=== PATIENT | female | born 1965 | race Caucasian/White ===

== ENCOUNTER 2020-05-31 09:34 | Outpatient (CLI) | payer OTHER, SELFPAY ==
--- NOTE | ~2020-05-31 | US_ITS ---
EXAMINATION: US abdomen limited DATE: 05/31/2020 10:14 INDICATION: Abnormal levels of other serum enzymes. TECHNIQUE: Multiple grayscale and Doppler ultrasound images of the abdomen were obtained. COMPARISON: CT abdomen and pelvis 09/24/2006 FINDINGS: The visualized portions of the head and body of the pancreas are normal. The liver is dean l without focal lesion. No liver surface nodularity. There is normal flow in main portal vein. The ga llbladder is absent. The common duct is normal and measures 4 mm. IMPRESSION: 1. Normal right upper quadrant ultrasound status post cholecystectomy. Reviewed, dictated and finalized at location A.
== END 2020-05-31 09:35 | disposition home or self-care (01) ==
LOC: ANHIMG 09:36
PROVIDERS: PCP Family Medicine; Visit Provider Family Medicine
DX: R74.8 Abnormal levels of other serum enzymes (principal); Z90.49 Acquired absence of other specified parts of digestive tract
CPT/HCPCS: 76705

== ENCOUNTER 2021-01-10 11:38 | Outpatient (CLI) | payer OTHER, SELFPAY | END 2021-01-10 11:39 | disposition home or self-care (01) | LOC: ANHCOVIDVC 11:39 | PROVIDERS: PCP Family Medicine | DX: Z23 Encounter for immunization (principal) | CPT/HCPCS: 0001A; 91300 ==

== ENCOUNTER 2021-01-31 11:48 | Outpatient (CLI) | payer OTHER, SELFPAY | END 2021-01-31 11:49 | disposition home or self-care (01) | LOC: ANHCOVIDVC 11:48 | PROVIDERS: PCP Family Medicine | DX: Z23 Encounter for immunization (principal) | CPT/HCPCS: 0002A; 91300 ==

== ENCOUNTER → 2021-02-06 14:54 | Outpatient (CLI) | payer OTHER, SELFPAY ==
--- NOTE | ~2021-02-06 | XR_ITS ---
EXAMINATION: XR cervical spine 4-5V DATE: 02/06/2021 15:58 INDICATION: Cervical radiculopathy. TECHNIQUE: 5 views of cervical spine were obtained. COMPARISON: Cervical spine MRI 03/09/2017 FINDINGS: Bone alignment is normal. Vertebral body heights and intervertebral disc heights are normal . There are changes of anterior fusion procedure from C5 to C7 with healed interbody bone graft. Ther e is an anterior plate and screws at C5-C6. There is multilevel mild facet joint osteoarthritis. No c entral canal stenosis or prevertebral soft tissue swelling. IMPRESSION: 1. Anterior fusion procedure from C5 to C7. Reviewed, dictated and finalized at location A.
== END ==
PROVIDERS: PCP Family Medicine; Visit Provider Family Medicine
DX: M54.12 Radiculopathy, cervical region (principal); Z98.1 Arthrodesis status
CPT/HCPCS: 72050

== ENCOUNTER → 2021-03-10 15:35 | Outpatient (CLI) | payer OTHER, SELFPAY ==
--- NOTE | ~2021-03-10 | MR_ITS ---
EXAMINATION: MR cervical spine wo con DATE: 03/10/2021 16:24 INDICATION: Neck pain. Cervical disc disorder with radiculopathy. TECHNIQUE: Magnetic resonance imaging (MRI) of the cervical spine was performed without intravenous c ontrast. Sequences included sagittal T2-weighted FSE, sagittal STIR FSE, sagittal T1-weighted FSE, ax ial MERGE, and axial T2-weighted FSE. COMPARISON: Cervical spine MRI 03/09/2017 FINDINGS: Bone alignment is normal. There are changes of anterior fusion procedure from C5 to C7 with healed interbody bone graft. There is an anterior plate and screws at C5-C6. Vertebral body heights are normal. Intervertebral disc heights are normal. The spinal cord signal intensity is normal. The f ollowing disc levels are specifically discussed: C2-C3: The disc does not extend beyond the endplate margin. There is no uncovertebral joint osteoarth ritis. There is moderate bilateral facet joint osteoarthritis. There is mild left neural foraminal st enosis. There is no central canal stenosis. C3-C4: The disc is bulging. There is moderate right and mild left uncovertebral joint osteoarthritis. There is severe bilateral facet joint osteoarthritis. There is mild bilateral neural foraminal steno sis. There is no central canal stenosis. C4-C5: There is a central protrusion. There is no uncovertebral joint osteoarthritis. There is severe right and mild left facet joint osteoarthritis. There is no neural foraminal stenosis. There is mild central canal stenosis. C5-C6: There is no uncovertebral joint hypertrophy. There is no facet joint osteoarthritis. There is no neural foraminal stenosis. There is no central canal stenosis. C6-C7: There is no uncovertebral joint hypertrophy. There is no facet joint osteoarthritis. There is no neural foraminal stenosis. There is no central canal stenosis. C7-T1: There is a left central protrusion. There is no uncovertebral joint osteoarthritis. There is m ild bilateral facet joint osteoarthritis. There is no neural foraminal stenosis. There is no central canal stenosis. IMPRESSION: 1. Mild cervical spondylosis, stable from 03/09/2017. 2. Anterior fusion procedure from C5 to C7. Reviewed, dictated and finalized at location A.
== END ==
PROVIDERS: PCP Family Medicine
DX: M50.120 Mid-cervical disc disorder, unspecified level (principal); M47.812 Spondylosis without myelopathy or radiculopathy, cervical region; Z98.1 Arthrodesis status
CPT/HCPCS: 72141

== ENCOUNTER → 2021-07-10 10:57 | Outpatient (CLI) | payer OTHER, SELFPAY ==
--- NOTE | ~2021-07-10 | DEXA_ITS ---
Bone Density Report Name: Marylin Martin Age: 56 Sex: Female Ethnicity: White Date of : 1965 Indication: postmenopausal; screening for osteoporosis; rheumatoid arthritis; Referring Provider: ANNETTE ROMERO Study: Bone densitometry was performed. Exam Date: July 10, 2021 Accession number: [id number] Bone Density: Region BMD T-score Z-score Classification AP Spine (L1-L4) 0.978 -0.6 0.5 Normal Femoral Neck (Left) 0.647 -1.8 -0.7 Osteopenia Total Hip (Left) 0.839 -0.8 -0.1 Normal Femoral Neck (Right) 0.642 -1.9 -0.7 Osteopenia Total Hip (Right) 0.852 -0.7 0.0 Normal Total Hip Mean 0.846 -0.8 -0.1 Normal World Health Organization criteria for BMD impression classify patients as: Normal (T-score at or above -1.0), Osteopenia (T-score between -1.0 and -2.5), or Osteoporosis (T-score at or below -2.5). 10-year Fracture Risk(1): Major Osteoporotic Fracture 9.8% Hip Fracture 2.0% Reported Risk Factors: [place] (), Neck BMD=0.642, BMI=22.3, smoking, rheumatoid arthritis (1) FRAX(R) Version 3.08. Fracture probability calculated for an untreated patient. Fracture probability may be lower if the patient has received treatment. Clinical Information Provided by Patient: Smokes Has rheumatoid arthritis Patient maximum height was 65 Menopause Age: 54 Drinks caffeinated beverages Onset of menses at age 13 Number of children 0 Impression: The patient has low bone mass, based on the Right Femoral Neck T-score. The patient has an estimated ten-year risk of hip fracture of 2% and an estimated ten-year risk of major fracture of 9.8%, based on the WHO FRAX algorithm. The patient has risk factors, including: smoking. Discussion: BONE DENSITY IS LOW AT ONE OR MORE SKELETAL SITES. This patient's lowest T-score is low at one or more skeletal sites. It meets the World Health Organization's (WHO) criteria for ?low bone mass? (T-score between -1.0 and -2.5). The patient's 10-year risk of fracture as calculated by FRAX is less than the threshold where pharmacological therapy is recommended by the National Osteoporosis Foundation (NOF). However, all treatment decisions require clinical judgment and consideration of individual patient factors, including patient preferences, comorbidities, previous drug use, risk factors not captured in the FRAX model (e.g., frailty, falls, vitamin D deficiency, increased bone turnover, interval significant decline in bone density) and possible under or overestimation of fracture risk by FRAX. The patient should follow a healthful lifestyle (good nutrition with adequate calcium and vitamin D, and appropriate weight-bearing exercise). Follow-Up: Consider repeating this study in 2 to 3 years to reassess this patient's status, or sooner if there is some new cli
--- NOTE | ~2021-07-10 | MM_ITS ---
EXAMINATION: MM screening estefanía BI w darleen HISTORY: Screening TECHNIQUE: Craniocaudal and mediolateral oblique 3-D tomosynthesis images were obtained and synthetic 2-D images were generated. CAD analysis was submitted and interpreted. COMPARISON: Comparison to multiple prior studies sequentially, with oldest reviewed study dated 11/25. BREAST PARENCHYMAL COMPOSITION: The breasts are heterogeneously dense, which may obscure small masses . FINDINGS: There is no evidence of suspicious mass, calcification, or architectural distortion to sugg est malignancy in either breast. There has been no suspicious interval change. IMPRESSION: 1. No mammographic evidence of malignancy. 2. Recommend routine screening mammography in one year. BI-RADS Category 1: Negative Reviewed, dictated and finalized at location A.
== END ==
PROVIDERS: PCP Family Medicine; Visit Provider Family Medicine
DX: Z12.31 Encounter for screening mammogram for malignant neoplasm of breast (principal); Z78.0 Asymptomatic menopausal state
CPT/HCPCS: 77063; 77067; 77080

== ENCOUNTER → 2022-07-16 12:59 | Outpatient (CLI) | payer BC, SELFPAY ==
--- NOTE | ~2022-07-16 | XR_ITS ---
EXAMINATION: XR sacroiliac joints min 3V DATE: 07/16/2022 13:28 INDICATION: Unspecified osteoarthritis at unspecified site TECHNIQUE: AP and left and right oblique views of the bilateral sacral iliac joints were obtained. COMPARISON: None. FINDINGS: Bone alignment is normal. No fracture. No suspected avascular necrosis at the femoral heads. Mild malissa yarticular osteoarthritis at the bilateral hip and sacroiliac and lower lumbar facet joints. No erosi ons to suggest an inflammatory synovitis. Soft tissues are unremarkable.. IMPRESSION: 1. Mild polyarticular osteoarthritis in the pelvis and lower lumbar facet joints. Reviewed, dictated and finalized at location A. IMPRESSION: 1. Mild polyarticular osteoarthritis in the pelvis and lower lumbar facet joint s.
--- NOTE | ~2022-07-16 | XR_ITS ---
EXAMINATION: HAND-MERARI ARTHRITIS 3+VIEWS DATE: 07/16/2022 13:28 INDICATION: Unspecified osteoarthritis at the hands. TECHNIQUE: Posteroanterior, lateral, and oblique views of the left and of the right hands as well as a ballcatchers view of both hands were obtained. COMPARISON: 02/19/2015 FINDINGS: Alignment is normal at both hands. No fractures. Interval progression of polyarticular osteoarthritis at the bilateral hands, now moderate severity at the right first interphalangeal,, bilateral first m etacarpophalangeal and right second metacarpophalangeal joints. Mild osteoarthritis at the bilateral first carpometacarpal, multiple bilateral interphalangeal joints and a few additional metacarpophalan geal joints . No erosions to suggest inflammatory arthritis. Soft tissues are unremarkable. IMPRESSION: 1. Interval progression of mild to moderate osteoarthritis at the bilateral hands. Reviewed, dictated and finalized at location A. IMPRESSION: 1. Interval progression of mild to moderate osteoarthritis at the bilateral north ds.
--- NOTE | ~2022-07-16 | XR_ITS ---
EXAMINATION: XR foot LT standing 2V, XR foot RT standing 2V DATE: 07/16/2022 13:28 INDICATION: Unspecified osteoarthritis at the bilateral feet TECHNIQUE: 1. Standing dorsoplantar and lateral views of the left foot were obtained. 2. Standing dorsoplantar and lateral views of the right foot were obtained. COMPARISON: 02/19/2015 FINDINGS: Mild right and minimal left pes planus with flattening of the longitudinal arches also right greater than left. Alignment is otherwise normal. No fracture. Severe osteoarthritis at the bilateral first m etatarsophalangeal joints and at the right second tarsal metatarsal joint. Moderate osteoarthritis at the left second tarsal metatarsal and right third and fourth tarsal metatarsal joints. Mild osteoart hritis at several of the remaining joints in the bilateral mid feet as well as at multiple interphala ngeal joints. IMPRESSION: 1. Polyarticular osteoarthritis at the bilateral feet, severe at the first metatarsophalangeal joints and at the right second tarsal metatarsal joint. 2. Mild right and minimal left pes planus. Reviewed, dictated and finalized at location A. IMPRESSION: 1. Polyarticular osteoarthritis at the bilateral feet, severe at the first meta tarsophalangeal joints and at the right second tarsal metatarsal joint. 2. Mild right and minimal left pes planus.
== END ==
PROVIDERS: PCP Family Medicine; Visit Provider Internal Medicine
DX: M47.812 Spondylosis without myelopathy or radiculopathy, cervical region (principal); M79.7 Fibromyalgia; M47.816 Spondylosis without myelopathy or radiculopathy, lumbar region; Z71.89 Other specified counseling; Z79.899 Other long term (current) drug therapy; M85.88 Other specified disorders of bone density and structure, other site; M19.042 Primary osteoarthritis, left hand; M19.041 Primary osteoarthritis, right hand; M19.072 Primary osteoarthritis, left ankle and foot; M19.071 Primary osteoarthritis, right ankle and foot; M21.42 Flat foot [pes planus] (acquired), left foot; M21.41 Flat foot [pes planus] (acquired), right foot
CPT/HCPCS: 72202; 73130; 73620

== ENCOUNTER 2022-07-20 08:39 | Outpatient (CLI) | payer BC, SELFPAY ==
[2022-07-20 19:15] LABS: Complement C3 95 mg/dL (88-165); Rheumatoid Factor < 8.6 IU/ML (<12)
[2022-07-20 19:27] LABS: Appearance Urine Clear (Clear); Bilirubin Urine Negative (Negative); Blood Urine Negative (Negative); Color Urine Yellow (Yellow); Glucose Urine UA Negative (Negative); Ketones Urine Negative (Negative); Leukocyte Esterase Ur Negative LEU/UL (Negative); Nitrate Urine Negative (Negative); Protein Urine Negative (Negative); Urobilinogen Urine 0.2 mg/dL (<2.0); pH Urine 6.5 (5.0-9.0)
[2022-07-20 19:28] LABS: Basophils Absolute Auto 0.1 K/mm3 (0.0-0.1); Basophils Percent Auto 0.9 % (0.2-1.2); Eosinophils Absolute Auto 0.4 K/mm3 (0-0.3); Eosinophils Percent Auto 4.8 % (0-4.4); Hematocrit 41.1 % (37.0-47.0); Hemoglobin 14.1 g/dL (12.0-15.0); Immature Granulocyte Absolute 0.07 K/mm3 (0.00-0.031); Immature Granulocyte Percent A 0.8 % (0-0.5); Lymphocytes Absolute Auto 2.49 K/mm3 (0.9-3.2); Mean Corpuscular HGB Conc 34.3 g/dl (32-36); Mean Corpuscular Hemoglobin 32.6 pg (26-34); Mean Corpuscular Volume 95.1 fl (80-100); Mean Platelet Volume 9.6 fl (7.4-10.4); Monocytes Absolute Auto 0.8 K/mm3 (0.1-0.6); Monocytes Percent Auto 8.7 % (2.6-8.5); Neutrophils Absolute Auto 4.8 K/mm3 (1.3-6.7); Neutrophils Percent Auto 55.8 % (45.5-73.1); Platelet Count Result 279 k/mm3 (150-375); Red Blood Count 4.32 M/mm3 (4.2-5.4); Red Cell Distribution Width 12.8 % (11.5-14.5); White Blood Count 8.6 K/mm3 (4.5-10.0)
[2022-07-20 19:34] LABS: Add Urine Microscopic? NO
[2022-07-20 19:37] LABS: Vitamin D 25 Hydroxy 27.8 ng/mL
[2022-07-20 19:55] LABS: Hepatitis B Surface Antigen Negative (Negative)
[2022-07-20 20:13] LABS: Hepatitis B Surface Anti Res Negative; Hepatitis C Virus Antibody Negative (Negative)
[2022-07-20 20:14] LABS: Alanine Aminotransferase 20 U/L (6-35); Albumin Level 4.6 g/dL (3.5-5.1); Alkaline Phosphatase 77 U/L (38-126); Anion Gap 12 mmol/L (8-16); Aspartate Amino Transferase 82 U/L (14-36); Bilirubin,Total 0.4 mg/dL (0.2-1.3); Blood Urea Nitrogen 12 mg/dL (7-17); Calcium 8.9 mg/dL (8.4-10.2); Carbon Dioxide 27 mmol/L (22-30); Chloride 103 mmol/L (98-107); Estimated Glomerular Filt Rate > 60; Glucose 91 mg/dL (65-110); Potassium 3.9 mmol/L (3.4-5.0); Sodium 142 mmol/L (137-145); Uric Acid 2.8 mg/dL (2.5-7.5)
[2022-07-20 20:27] LABS: CRP < 0.5 mg/dL (<1.0)
[2022-07-20 20:37] LABS: Erythrocyte Sedimentation Rate 4 mm/hr (0-20)
[2022-07-22 12:42] LABS: Anti Cyclic Citrullinated Pept <16 Units (<20)
[2022-07-22 14:07] LABS: NIL 0.02 IU/mL; Quantiferon TB Plus, 1T NEGATIVE (NEGATIVE)
[2022-07-22 21:00] LABS: Anti Cardio Antibody IgM <2.0 MPL-U/mL (<20.0); Anti Cardiolipin Antibody IgA <2.0 APL-U/mL (<20.0); Anti Cardiolipin Antibody IgG 22.8 GPL-U/mL (<20.0)
[2022-07-23 05:51] LABS: Lupus dRVVT 1:1 Mix Interpreta Not Indicated; Lupus dRVVT Screen 32 sec (<=45); PTT-LA Screen 25 sec (<=40)
[2022-07-24 09:01] LABS: SM Antibody <1.0; SM/RNP Antibody <1.0; SS-A <1.0; SS-B <1.0
== END 2022-07-20 08:40 | disposition home or self-care (01) ==
LOC: ANHGOSHLAB 08:41
PROVIDERS: PCP Family Medicine; Visit Provider Internal Medicine
DX: Z11.59 Encounter for screening for other viral diseases (principal); Z79.899 Other long term (current) drug therapy; Z71.89 Other specified counseling; M79.7 Fibromyalgia; M47.816 Spondylosis without myelopathy or radiculopathy, lumbar region; M47.812 Spondylosis without myelopathy or radiculopathy, cervical region; M19.90 Unspecified osteoarthritis, unspecified site
CPT/HCPCS: 36415; 80053; 81003; 82306; 84550; 85025; 85613; 85652; 85730; 86038; 86140; 86146; 86147; 86160; 86200; 86225; 86235; 86430; 86480; 86706; 86803; 87340

== ENCOUNTER 2023-08-12 13:51 | Outpatient (CLI) | payer BC, SELFPAY ==
[2023-08-12 19:09] LABS: Alanine Aminotransferase 20 U/L (6-35); Albumin Level 4.5 g/dL (3.5-5.1); Alkaline Phosphatase 65 U/L (38-126); Anion Gap 4 mmol/L (8-16); Aspartate Amino Transferase 82 U/L (14-36); Bilirubin,Total 0.7 mg/dL (0.2-1.3); Blood Urea Nitrogen 14 mg/dL (7-17); Calcium 9.4 mg/dL (8.4-10.2); Carbon Dioxide 31 mmol/L (22-30); Chloride 105 mmol/L (98-107); Estimated Glomerular Filt Rate > 60; Glucose 85 mg/dL (65-110); Potassium 4.5 mmol/L (3.4-5.0); Sodium 140 mmol/L (137-145)
[2023-08-12 19:30] LABS: Thyroid Stimulating Hormone 0.774 uIU/mL (0.465-4.680)
== END 2023-08-12 13:52 | disposition home or self-care (01) ==
LOC: ANHGOSHLAB 13:52
PROVIDERS: PCP Family Medicine; Visit Provider Family Medicine
DX: M79.7 Fibromyalgia (principal)
CPT/HCPCS: 36415; 80053; 84443

== ENCOUNTER 2024-09-04 09:40 | Outpatient (CLI) | payer BC, SELFPAY ==
--- NOTE | ~2024-09-04 | MR_ITS ---
EXAMINATION: MR cervical spine wo con DATE: 09/04/2024 10:40 INDICATION: Neck pain. Cervical radiculopathy. TECHNIQUE: Magnetic resonance imaging (MRI) of the cervical spine was performed without intravenous c ontrast. COMPARISON: Cervical spine MRI 03/10/2021 FINDINGS: Alignment is normal. There are changes of anterior fusion procedure from C5 to C7 with heal ed interbody bone graft. There is an anterior plate and screws at C5-C6. Vertebral body heights are n ormal. There is mildly decreased disc height at C3-C4. The spinal cord signal intensity is normal. Th e following disc levels are specifically discussed: C2-C3: The disc does not extend beyond the endplate margin. There is mild left uncovertebral joint os teoarthritis. There is severe left facet joint osteoarthritis. There is mild left neural foraminal st enosis. There is no central canal stenosis. C3-C4: There is a central protrusion. There is severe right uncovertebral joint osteoarthritis. There is severe right and moderate left facet joint osteoarthritis. There is moderate right neural foramin al stenosis. There is no central canal stenosis. C4-C5: The disc is bulging. There is mild bilateral uncovertebral joint osteoarthritis. There is jin re right and mild left facet joint osteoarthritis. There is no neural foraminal stenosis. There is mi ld central canal stenosis. C5-C6: There is no uncovertebral joint hypertrophy. There is no facet joint osteoarthritis. There is no neural foraminal stenosis. There is mild central canal stenosis. C6-C7: There is no uncovertebral joint hypertrophy. There is no facet joint osteoarthritis. There is no neural foraminal stenosis. There is no central canal stenosis. C7-T1: There is a central protrusion with annular fissure. There is no uncovertebral joint osteoarthr itis. There is mild right and moderate left facet joint osteoarthritis. There is mild left neural for aminal stenosis. There is no central canal stenosis. IMPRESSION: 1. Worsened moderate right neural foraminal stenosis at C3-C4. Otherwise mild cervical spondylosis. 2. Anterior fusion procedure from C5 to C7. Reviewed, dictated and finalized at location B. IMPRESSION: 1. Worsened moderate right neural foraminal stenosis at C3-C4. Otherwise mild c ervical spondylosis. 2. Anterior fusion procedure from C5 to C7.
== END 2024-09-04 09:41 | disposition home or self-care (01) ==
PROVIDERS: PCP Family Medicine; Visit Provider Family Medicine
DX: M48.02 Spinal stenosis, cervical region (principal); M47.812 Spondylosis without myelopathy or radiculopathy, cervical region; M43.22 Fusion of spine, cervical region
CPT/HCPCS: 72141

== ENCOUNTER 2025-01-22 10:51 | Emergency (ER) | payer BC, SELFPAY ==
--- NOTE | 2025-01-22 10:52 | ED.URI ---
HPI - URI/Sore Throat General Chief Complaint: Upper Respiratory Infection Stated Complaint: Upper Respiratory Symptoms Time Seen by Provider: 01/22/25 11:18 Source: patient and RN notes reviewed Mode of arrival: ambulatory Limitations: no limitations History of Present Illness HPI Narrative: 6-year-old female presents concern for one-week history of cough. Patient is smoker. She reports she has coughing fits that make her feel short of breath and make her feel like she is going to vomit. She reports right upper back pain when she coughs. She has been taking joft-ohh-kfeblem cough medicine MD elicited complaint: cough Related Data Home Medications ?Medication ?Instructions ?Recorded ?Confirmed ?Last Taken ?Type zolpidem 10 mg tablet 10 mg PO QHS PRN 10/20/24 10/20/24 Unknown History Allergies Allergy/AdvReac Type Severity Reaction Status Date / Time meloxicam Allergy Unknown Unknown Verified 01/22/25 10:54 sulfasalazine AdvReac Mild Nausea Verified 01/22/25 10:54 Influenza Virus Vaccines AdvReac Unknown Migraine Verified 01/22/25 10:54 Review of Systems Review of Systems: CONSTITUTIONAL: Denies malaise, chills, sweats, or fever. EYES: Denies visual changes, redness, or discharge. ENT: Denies rhinorrhea, congestion, sinus pain, otalgia and sore throat. CARDIOVASCULAR: Denies chest pain, palpitations, or edema. RESPIRATORY: Reports nonproductive cough, coughing fits. Denies dyspnea. GASTROINTESTINAL: Denies abdominal pain, nausea, vomiting, diarrhea SKIN: Denies rash or itching. MUSCULOSKELETAL: Denies myalgia. NEUROLOGIC: Denies headache. All systems reviewed & are unremarkable except as noted in HPI and below PMFSH Past Medical History Medical History Undifferentiated connective tissue disease Encounter for screening for other viral diseases Encounter for medication management Counseling on health promotion and disease prevention Degenerative joint disease of cervical and lumbar spine Inflammatory arthritis Osteopenia Post-menopausal Breast cancer screening Colon cancer screening Fatigue Rheumatoid arthritis Trigger point of left side of body Narcolepsy Osteoarthritis of left knee Raynaud disease Right foot strain MCL sprain of left knee Chronic pain disorder Fibromyalgia Inflammatory arthritis Migraine, unspecified, intractable, without status migrainosus Irritable bowel syndrome Migraine with aura and without status migrainosus, not intractable Surgical History Surgical History H/O toe surgery History of neck surgery H/O knee surgery Hx of cholecystectomy (~2002) History of tonsillectomy (~1982) History of arthroscopy of left knee (~03/17/16) Synovectomy w/Plica Excision Family History Family History Father Hypertension Other Carcinoma of colon Diabetes mellitus Family history of arthritis Family history of lung cancer Family history of malignant neoplasm Social History Social History Smoking packs per day: 0.5 Smoking cigarettes per day: 10.0 Smoking status: Current every day smoker Tobacco type: cigarettes Second hand tobacco smoke exposure: Yes Alcohol intake: never Lack of Transportation: No Lack of Food: Never True Current Housing: I Have Housing Concerned About Future Housing: No Difficulty Paying Gas/Electric Bills: No Difficulty Paying for Meds: No Currently Unemployed: No Education: High School Diploma/GED Difficulty w/ Childcare or Family Care: No Comments At time of signature, agree with nursing past medical, surgical, social and family history. There is no relevant family history pertinent to the presenting complaint Exam Narrative: GENERAL: Well-appearing, well-nourished, and in no acute distress. HEAD: Normocephalic EYES: PERRLA, conjunctivae clear ENT: Nares clear. Mucous membranes moist. TM pearly patel with sharp light reflex bilaterally; no tragal tenderness. Oropharynx not erythematous without lesions. Tonsils not enlarged and without exudate, no drooling, no hoarseness, no trismus, uvula midline. NECK: Supple. No lymphadenopathy CHEST: Clear to auscultation, breath sounds equal. No wheezing, rhonchi, rales, or stridor. No respiratory distress, speaks in full sentences. Cough noted HEART: Regular rate and rhythm. No murmur heard. SKIN: Warm, dry, no rash. NEURO: Alert and oriented x3. PSYCH: Normal mood and affect Course Course Emergency Course: Patient is aware of diagnosis, understands and agrees to treatment plan. Anticipatory guidance given. Patient agrees to follow-up as directed and is aware of reasons to seek care at the emergency department. Portions of this record may have been created with voice recognition software Level of Care: Express Care Visit Vital Signs Vital signs: Reviewed. MDM - URI/Sore Throat MDM Narrative Medical decision making narrative: Differential diagnosis considered: Walton virus, strep pharyngitis, allergic rhinitis, upper respiratory tract infection, sinusitis, rhinosinusitis, nasopharyngitis. viral pharyngitis, otitis media, otitis externa, pneumonia, bronchitis, viral cough syndrome, viral syndrome, and influenza. Exam findings show no acute concerns or changes; patient is non-toxic appearing and is in no distress. Patient is appropriate for outpatient treatment and follow-up. Lab Data Attestation: I reviewed the patient's lab results. Critical Care Time Critical Care Time Critical Care Time: No Discharge Plan Discharge Clinical Impression: Lower respiratory tract infection Patient Disposition: Home, Self-Care Condition: Stable Instructions: Antibiotic Form, Acute Cough (ED) Additional Instructions: Take medication as prescribed Recommend antihistamine such as Benadryl at night time and Zyrtec or Nyla during the day Use inhaler as needed for cough, wheezing, shortness of breath or chest tightness. Also, recommend symptomatic treatment includes: rest, fluids, and increase humidity of the air at home. Recommend Acetaminophen as directed on the bottle to reduce fever, pain, headache. Avoid smoking/second-hand smoke. Please schedule a follow-up visit with your personal physician for further evaluation and treatment within 3-5days. Including recheck and discussion of your blood pressure. If your symptoms persist, change or worsen significantly before you can contact your personal physician then please, without delay, go to the emergency department for further evaluation. Patient Language: Portuguese Prescriptions: New azithromycin [Zithromax Z-Romario] 250 mg tablet See Rx Instructions .ROUTE .COMPLEX Qty: 6 0RF Rx Instructions: take 500 mg today (day 1), then 250 mg for 4 days (days 2-5) prednisone 20 mg tablet 40 mg PO DAILY 5 Days Qty: 10 0RF albuterol sulfate 90 mcg/actuation HFA aerosol inhaler 2 puff INHALATION QID PRN (Reason: shortness of breath or wheezing) Qty: 8.5 0RF No Action zolpidem 10 mg tablet 10 mg PO QHS PRN Qulipta 10 mg tablet See Rx Instructions .ROUTE .COMPLEX Qty: 30 4RF Dose Instruction: TAKE 1 TABLET BY MOUTH ONCE DAILY (DUE FOR APPOINTMENT IN AUGUST) Rx Instructions: TAKE 1 TABLET BY MOUTH ONCE DAILY nabumetone 500 mg tablet 1,000 mg PO BID Qty: 360 4RF pregabalin 150 mg capsule 150 mg PO TID Qty: 270 3RF fluoxetine 20 mg capsule 20 mg PO DAILY Qty: 30 2RF chlordiazepoxide-clidinium 5-2.5 mg capsule 1 cap PO BID Qty: 60 2RF sumatriptan succinate 6 mg/0.5 mL pen injector See Rx Instructions .ROUTE .COMPLEX Qty: 16 0RF Dose Instruction: INJECT 6MG SUBCUTANEOUSLY NEEDED. MAY REPEAT DOSE ONCE IN ONE HOUR IF NOT RELIEVED Rx Instructions: INJECT 6MG SUBCUTANEOUSLY NEEDED. MAY REPEAT DOSE ONCE IN ONE HOUR IF NOT RELIEVED butorphanol 10 mg/mL spray,non-aerosol 1 spray intranasal Q4H PRN (Reason: pain) Qty: 2.5 2RF Follow-up/Referrals: UNKNOWN,DOCTOR [Non-Staff] - Time of Disposition: 11:26
[2025-01-22 11:01] VITALS: BP 106/88; PULSE 104; RESP 16; TEMP 37.2; O2SAT 100
== END 2025-01-22 11:31 | disposition home or self-care (01) ==
PROVIDERS: Emergency Provider Nurse Practitioner
DX: J22 Unspecified acute lower respiratory infection (principal); F17.210 Nicotine dependence, cigarettes, uncomplicated; R06.9 Unspecified abnormalities of breathing; M17.12 Unilateral primary osteoarthritis, left knee; I73.00 Raynaud's syndrome without gangrene; M79.7 Fibromyalgia; K58.9 Irritable bowel syndrome, unspecified; M35.9 Systemic involvement of connective tissue, unspecified
CPT/HCPCS: 99213; G0463

== ENCOUNTER 2025-02-27 13:00 | Outpatient (RCR) | payer BC, SELFPAY ==
--- NOTE | 2025-02-08 13:49 | OPREHPOC ---
Outpatient Therapy Plan of Care This is a Multidisciplinary Plan of Care that may contain components documented by all disciplines (PT, OT, and ST.) PT Problem 1 PT Problem #1 Knowledge Deficit PT Goal 1 Goal / Goal Update 1. Pt to be IND with issued HEP Target Visit 8 PT Problem 2 PT Problem #2 Pain PT Goal 1 Goal / Goal Update 1. Pt to report neck pain no greater than 3/10 in the last week 2. Pt to decline radicular symptoms in the last week Target Visit 8 PT Problem 3 PT Problem #3 Impaired Range of Motion PT Goal 1 Goal / Goal Update 1. Pt to improve cervical flexion/extension ROM to 40 deg ea 2. Pt to improve cervical rotation ROM to 60 deg ea direction Target Visit 8
--- NOTE | 2025-02-08 13:51 | PTOPEVAL1 ---
Assessment and note entered by Analisa Esteban, PT, DPT Evaluation Information Assessment Status Evaluation Diagnosis cervical radiculopathy ICD-10 Condition Codes (PT) Cervicalgia M54.2,Radiculopathy, cervical M54.13 Subjective Information Pt states she already has cervical surgery scheduled. States she already has a C5-C7 fusion and is scheduled to have a C2-C5 fusion. She states she has done multiple rounds of therapy without benefit. She states all therapy goes is give her a migraine. Surgery has been rescheduled d/t pt needing to quit smoking before she can get the surgery. She states all her pain is in her neck and her R shoulder, has adebayo hand tingling. Gets a lot of grinding and popping when she moves her head. States pain is 9/10 constantly, and worse when she tries to sleep, reports 3-4 migraines per week, has injections she gives herself for her migraines. Reported Pain Level Pain Score 9: Self Report Assessment PT Clinical Summary Pt presents to therapy today for her initial evaluation with a diagnosis of cervical radiculopathy. Today she demonstrates decreased cervical ROM in all directions with an increase in pain. Has forward and rounded shoulder, decreased R shoulder ROM, and decreased R shoulder strength . She has limited functional mobility d/t her neck pain and chronic migraines. Skilled therapy services are indicated to address the deficits noted above, to manage pain, to provide scapular stability, and to improve functional mobility, Plan of Care Interventions Electrical Stimulation,Hot Pack/Cold Pack,Manual Therapy,Neuro Re-education,Patient/Caregiver Education,Therapeutic Activities,Therapeutic Exercise PT Services Indicated Yes Treatment Frequency and 1x/wk for 4 visits Duration These treatments will address the objective and functional deficits as defined above. The patient will be advanced safely and appropriately in order for the patient to progress towards his/her prior level of function. Additional exercises will be introduced and as well as a comprehensive home exercise program upon discharge, if needed, ?to ensure carryover of functional gains achieved in the clinic. This treatment plan has been reviewed and agreement upon by the patient.
--- NOTE | 2025-02-27 14:02 | OPREHPOC ---
Outpatient Therapy Plan of Care This is a Multidisciplinary Plan of Care that may contain components documented by all disciplines (PT, OT, and ST.) PT Problem 1 PT Problem #1 Knowledge Deficit PT Goal 1 Goal / Goal Update 1. Pt to be IND with issued HEP Target Visit 8 Progress Met PT Problem 2 PT Problem #2 Pain PT Goal 1 Goal / Goal Update 1. Pt to report neck pain no greater than 3/10 in the last week 2. Pt to decline radicular symptoms in the last week 02/27/25: 1. not met 2. not met Target Visit 8 PT Problem 3 PT Problem #3 Impaired Range of Motion PT Goal 1 Goal / Goal Update 1. Pt to improve cervical flexion/extension ROM to 40 deg ea 2. Pt to improve cervical rotation ROM to 60 deg ea direction 02/27/25: 1. slight progress 2. slight regression Target Visit 8
--- NOTE | 2025-02-27 14:02 | PTOPDC ---
Assessment and note entered by Analisa Esteban, PT, DPT Evaluation Information Assessment Status Discharge Diagnosis cervical radiculopathy ICD-10 Condition Codes (PT) Cervicalgia M54.2,Radiculopathy, cervical M54.13 Subjective Information Pt states things are not going well. Pt states some of her exercises increase her head and neck pain later in the day. States she knows she just needs the surgery. Is 4 days without a cigarette. States pain has decreases going down her L shoulder but increased going down her R shoulder. Reported Pain Level Pain Score 8: Self Report Assessment PT Clinical Summary Pt presents to therapy today for her progress report following 4 visits of skilled therapy to treat her diagnosis of cervical radiculopathy. Today she demonstrates intermittent progress and some regression with her cervical ROM, still significantly decreased in all directions and reports significant pain reports during. Also continues to have R shoulder strength concerns without any progress. Pt has made minimal progress towards her therapy goals. Plans to proceed with surgery, will be discharged at this time.
== END 2025-02-27 14:43 | disposition home or self-care (01) ==
LOC: ANHGOSHPT 13:00
PROVIDERS: PCP Family Medicine
DX: M47.22 Other spondylosis with radiculopathy, cervical region (principal)
CPT/HCPCS: 97110; 97140; 97161

== ENCOUNTER 2025-10-24 09:44 | Outpatient (CLI) | payer BC, SELFPAY ==
--- OUTSIDE RECORDS SUMMARY | 2025-10-24 10:58 | XMS_ITS | Clinical Summary ---
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 Gender Identity Not on file Sexual Orientation Not on file Plan of Treatment Health Maintenance Due Date Last Done Comments DTAP/TDAP/TD VACCINES (1 - Tdap) 01/15/1984 HPV/Cotest (21-29) 1986 CERVICAL CANCER SCREENING 1995 HPV/Cotest (30-65) 1995 PAP SMEAR 1995 BREAST CANCER SCREENING 2005 COLORECTAL SCREENING 2010 Colorectal Cancer Screening 2010 FIT-DNA Q 3 years 2010 FIT/FOBT Q 1 year 2010 Flex Sig/CT Colonography Q 5 years 2010 ZOSTER VACCINE (1 of 2) 2015 INFLUENZA VACCINE (#1) 2025 RSV VACCINE (60+ or ) (1 - 1-dose 75+ series) 01/15/2040 HEPATITIS B VACCINES Aged Out No long er eligible based on patient's age to complete this topic
--- OUTSIDE RECORDS SUMMARY | 2025-10-24 10:58 | XMS_ITS | Encounter Summary ---
Author Organization [facility] Address 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
--- OUTSIDE RECORDS SUMMARY | 2025-10-24 10:58 | XMS_ITS | Clinical Summary ---
Author Organization [facility] Address [address] [place] [address] Care Team Providers Care Older Adult Social Work Specialist Name Role Phone Ace Braswell MD Primary Care Provider [phone] Ace Mcdaniels MD Unavailable Allergies No known active allergies Medications pregabalin (LYRICA) 150 mg capsule Take 1 capsule (150 mg total) by mouth 3 (three) times a day Active SUMAtriptan succinate (IMITREX STATDOSE) 6 mg/0.5 mL kit Inject 0.5 mL (6 mg total) under the skin every 2 (two) hours as needed for migraine Active chlordiazePOXID E-clidinium (LIBRAX) 5-2.5 mg per capsule Take 1 capsule by mouth as needed (stomach issues) Active atogepant (Qulipta) 10 mg tablet Take 1 tablet (10 mg total) by mouth every morning Active FLUoxetine (PROzac) 20 mg tablet Take 1 tablet (20 mg total) by mouth every morning Active acetaminophen 500 mg capsuleIndicati ons:Pain Take 2 capsules (1,000 mg total) by mouth every 6 (six) hours 30 tablet 07/06/2025 Active cyclobenzaprine (FLEXERIL) 5 mg tablet Take 1 tablet (5 mg total) by mouth every 8 (eight) hours as needed for muscle spasms 30 tablet 07/06/2025 Active polyethylene glycol (MIRALAX) 17 gram/dose bulk powderIndicatio ns:constipation Take 17 g by mouth daily for 14 days 238 g 07/06/2025 Active senna-docusate (PERICOLACE) 8.6-50 mgIndications:c onstipation Take 2 tablets by mouth 2 (two) times a day 30 tablet 07/06/2025 Active oxyCODONE (ROXICODONE) 5 mg immediate release tabletIndicatio ns:Pain Take 1 tablet (5 mg total) by mouth every 4 (four) hours as needed for pain 42 tablet 07/30/2025 Active Active Problems Problem Noted Date Diagnosed Date Degeneration of intervertebral disc at C4-C5 lev el 02/01/2025 Cervical spondylosis with radiculopathy 02/02/20 25 Cervicalgia 02/01/2025 Cervical stenosis of spine 03/31/2023 Assessment & Plan (03/31/2023 10:30 AM CDT): Ms. Martin returns with severe neck pain with numbness of her right upper extremity and tingling in her left upper extremity. She does not have any focal radiculopathy or weakness of her upper extremities, nor any signs of cervical myelopathy. She continues to smoke 2-3 cigarettes per day. Patient reports her symptoms have progressively worsened since she was last seen in our office. She is interested in surgical intervention as she is tried therapy and injections in the past without substantial relief. Will obtain a cervical myelogram to assess for previous fusion and adjacent level stenosis especially at C3-4 and C4-5. Explained to patient she would need to be nicotine free prior to scheduling surgery. Previously Dr. Mcdaniels stated: If she needs a surgery she will need to be seen by ENT for vocal cord evaluation preoperatively as she has had 2 right-sided approaches and none on the left side as of yet. If I would approach the left side and this may put her recurrent laryngeal nerve at risk. Will schedule this at [facility] Encounters Date Type Department Care Team Description 07/30/2025 Orders Only [facility] Operating Room [facility] [place] [address] Ace Mcdaniels MD from Last 3 Months Surgical History Surgery Date Site/Laterality Comments TONSILLECTOMY 11/08/1982 - 11/07/1983 ELBOW SURGERY 1985 & 1995 Left CHOLECYSTECTOMY 11/08/2002 - 11/07/2003 ANTERIOR FUSION CERVICAL SPINE 11/08/2003 - 11/07/2004 C6-7 ACDF (Dr. Kaufman) TOE SURGERY 11/08/2006 - 11/07/2007 Bilateral Great toe LEG SURGERY 11/08/2006 - 11/07/2007 Left Plastic surgery to posterior left thigh - s/p brown recluse bite ANTERIOR FUSION CERVICAL SPINE 11/08/2009 - 11/07/2010 C5-6 ACDF (José Miguel) KNEE SURGERY 11/08/2015 - 11/07/2016 Left Medical History Medical History Date Comments Fibromyalgia Migraines IBS (irritable bowel syndrome) Arthritis Rheumatoid arthritis (HCC) Raynaud's disease Family History Medical History Relation Name Comments Diabetes Father Don Mental illness Father Don Cancer Maternal Grandfather Bryon Stroke Maternal Grandmother Stacey Cancer Paternal Grandfather Jah Diabetes Paternal Grandmother Jacinta Heart disease Paternal Grandmother Jacinta Relation Name Status Comments Father Don Maternal Grandfather Bryon Maternal Grandmother Stacey Paternal Grandfather Jah Paternal Grandmother Jacinta Social History Tobacco Use Types Packs/Day Years Used Date Smoking Tobacco: Former Cigarettes Smokeless Tobacco: Never Tobacco Cessation:Counseling Given: Not Answered Comments:Mygo to for stress. LOTS of stress in my life last 2 years. Alcohol Use Standard Drinks/Week Comments Yes 0 (1 standard drink = 0.6 oz pur e alcohol) PHQ-2 Answer Date Recorded PHQ-2 Total Score (If total score is 3 or more points, staff should administer the PHQ-9) 3 03/31/2023 AUDIT-C Answer Date Recorded Q1: How often do you have a drink containing alc ohol? Monthly or less 06/28/2025 Q2: How many drinks containi ng alcohol do you have on a typical day when you are drinking? 1 or 2 06/28/2025 Q3: How often do you have si x or more drinks on one occasion? Never 06/28/2025 Personal Safety Answer Date Recorded Have you ever been in or are you currently in a harmful physical or emotional relationship or is someone making you feel afraid or unsafe? 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 Gender Identity Female 08/05/2021 5:55 PM CDT Sexual Orientation Straight 08/05/2021 5: 55 PM CDT Last Filed Vital Signs Vital Sign Reading Time Taken Comments Blood Pressure 123/67 07/07/2025 8:09 AM CDT Pulse 83 07/07/2025 8:09 AM CDT Temperature 36.7 C (98 F) 07/07/2025 8:09 AM CDT Respiratory Rate 18 07/07/2025 8:09 AM CDT Oxygen Saturation 99% 07/07/2025 8:09 AM CDT Inhaled Oxygen Concentration - - Weight 49.9 kg (110 lb 0.2 oz) 07/06/2025 6:53 A M CDT Height 165.1 cm (5' 5) 07/06/2025 6:53 AM CDT Body Mass Index 18.31 07/06/2025 6:53 AM CDT Plan of Treatment Health Maintenance Due Date Last Done Comments Breast Cancer Screening-Mammogram 1965 Cervical Cancer Screening 1965 Colon Cancer Screening-Colonoscopy 1965 Hepatitis C Screening 1965 Hepatitis B Screening 1983 Regular Well Visit/Exam 18-64 1983 Zoster Vaccine (1 of 2) 2015 DTaP/Tdap/Td Vaccine (2 - Td or Tdap) 03/09/2018 03/09/2008 Depression Screening 03/31/2024 03/31/2023, 03/31/2023, 02/25/2021, Additional history exists Covid-19 Vaccine ( season) 2025 07/18/2024, 01/31/2021, 01/10/2021 Influenza Vaccine (#1) 2025 Pneumococcal vaccine <65 Aged Out No longer eligible based on patient's age to complete this topic Medical Devices Implanted Type Area Cardiac Rehabilitation Specialist Device Identifier Shelf Expiration Date Model / Serial / Lot Depuy Synthes Spine Graft Bone Filler Lg Inj Fibergraft Bg Gps 11cc Putty [id number] - [id number] Implanted:Qty : 1 on 07/06/2025 by Ace Mcdaniels MD at [facility] N/A: Spine Cervical Depuy Synthes Spine [id number] 01/26/2028 [id number] / / [id number] Depuy Synthes Spine Screw Spinal Set Posterior Cervical Solid Symphony Titanium [id number] - [id number] Implanted:Qty : 9 on 07/06/2025 by Ace Mcdaniels MD at [facility] N/A: Spine Cervical Depuy Synthes Spine [id number] / / Depuy Synthes Spine Screw Spinal Posterior Cervical Polyaxial Solid Symphony 3.5x20mm [id number] - [id number] Implanted:Qty : 2 on 07/06/2025 by Ace Mcdaniels MD at [facility] N/A: Spine Cervical Depuy Synthes Spine [id number] / / Depuy Synthes Spine Screw Spinal Posterior Cervical Polyaxial Solid Symphony 3.5x14mm [id number] - [id number] Implanted:Qty : 7 on 07/06/2025 by Ace Mcdaniels MD at [facility] N/A: Spine Cervical Depuy Synthes Spine [id number] / / Depuy Synthes Spine Matias Spinal Posterior Cervical Pre Cut Symphony 3.5x70mm Titanium [id number] - [id number] Implanted:Qty : 2 on 07/06/2025 by Ace Mcdaniels MD at [facility] N/A: Spine Cervical Depuy Synthes Spine [id number] / / [facility] [place] [address] [place] [id number] [address] [place] [address] [place] [phone] [place] [address] [place] [address] Advance Directives For more information, please contact: [phone] Documents on File Type Date Recorded Patient Dry Wall Installer Expl anation Advance Directives and Livin g Will 07/06/2025 5:28 AM * Full Code (Latest Code Status on File) Date Activated Date Inactivated Comments 07/06/2025 12:46 PM 07/07/2025 5:52 PM * Full Code Date Activated Date Inactivated Comments 04/08/2023 1:20 PM 04/09/2023 4:58 AM Care Teams Older Adult Social Work Specialist Relationship Specialty Start Date End Date Ace Braswell MD PCP - General Family Medicine 02/11/21 [place] [address] [place] [address] Consulting Physician Orthopedic Surgery 07/07/25
--- OUTSIDE RECORDS SUMMARY | 2025-10-24 10:58 | XMS_ITS | Encounter Summary ---
Author Organization [facility] Address 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
--- OUTSIDE RECORDS SUMMARY | 2025-10-24 10:58 | XMS_ITS | Clinical Summary ---
Author Organization [facility] Address [address] [place] [address] Care Team Providers Care Lining Machine Tender Name Role Phone Kimberli Cheek MD Unavailable Alfonzo Lawson MD Primary Care Provider [phone] Source Comments [employer] [facility],non-owned Affiliates and Associated Physician Practices is amultiple site organization consisting of ambulatory clinics and hospital sitesin [place], [place]. This disclosure is being madepursuant to the Care Everywhere program and may not contain all information available regarding this patient. Last updated 18.[employer] [facility] Allergies No known active allergies Medications * Be aware that medications may not be up to date on this document. Alwaysverify current medications with the patient. SUMAtriptan (IMITREX) 6 MG/0.5ML injectionIndic ations:Pain in joint, multiple sites Inject 6 mg subcutaneously as needed for Migraine Active chlordiazePOXI DE-clidinium (LIBRAX) 5-2.5 MG capsuleIndicat ions:Pain in joint, multiple sites Take 1 Cap by mouth as needed Active calcium-vitami n D (OS-CHERYL 250 PLUS D 125 UNITS) 250-125 MG-UNIT tabletIndicati ons:Vitamin D deficiency Take 1 Tab by mouth 2 times daily with morning and evening meal 60 Tab 1 6 Active Additional Information Patient not taking.Reported on 10/26/2017 DULoxetine (CYMBALTA) 60 MG capsule Take 1 Cap by mouth once daily 90 Cap 7 Active diclofenac sodium (VOLTAREN) 1 % gelIndications :Fibromyalgia, Pain in joint, multiple sites 4 g 3 times daily Apply two to three a day to the affected area as needed 1 Tube 2 7 Active Additional Information Patient not taking.Reported on 10/26/2017 butorphanol (STADOL) 10 MG/ML nasal spray Penn Laird 1 Penn Laird into left nostril once daily as needed 0 7 Active fentaNYL (DURAGESIC) 50 MCG/HR patch Apply 1 Patch to skin every 2 days 1 Patch 7 Active Additional Information Patient not taking.Reported on 10/26/2017 traMADol (ULTRAM) 50 MG tablet Take 1 tablet by mouth every 6 hours as needed for Pain 40 tablet 7 Active Active Problems No known active problems Family History Medical History Relation Name Comments Diabetes Father CAD (Coronary Artery Disease) Maternal Grandfather Stroke Maternal Grandmother CAD (Coronary Artery Disease) Paternal Grandfather Arthritis - Rheumatoid Paternal Grandmother CAD (Coronary Artery Disease) Paternal Grandmother Diabetes Paternal Grandmother Hypertension Paternal Grandmother Relation Name Status Comments Father Maternal Grandfather Maternal Grandmother Paternal Grandfather Paternal Grandmother Social History Tobacco Use Types Packs/Day Years Used Date Smoking Tobacco: Former Cigarettes 0 Q uit: 04/07/2015 Smokeless Tobacco: Never Alcohol Use Standard Drinks/Week Comments Yes 0 (1 standard drink = 0.6 oz pur e alcohol) socially only Comments Unknown Sex and Gender Information Value Date Recorded Sex Assigned at Not on file Legal Sex Female 11:52 AM WORKERS COMPENSATION CLAIMS ADJUSTER Gender Identity Not on file Sexual Orientation Not on file 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 Not on file Not on file Not on file Last Filed Vital Signs Vital Sign Reading Time Taken Comments Blood Pressure 100/70 10/26/2017 11:04 AM WORKERS COMPENSATION CLAIMS ADJUSTER Pulse 80 10/26/2017 11:04 AM WORKERS COMPENSATION CLAIMS ADJUSTER Temperature - - Respiratory Rate - - Oxygen Saturation - - Inhaled Oxygen Concentration - - Weight 60.3 kg (133 lb) 10/26/2017 11:04 AM WORKERS COMPENSATION CLAIMS ADJUSTER Height 165.1 cm (5' 5) 04/27/2017 10:57 AM CDT Body Mass Index 22.13 04/27/2017 10:57 AM CDT Plan of Treatment Health Maintenance Due Date Last Done Comments CON (AGES 45-75) - COL ON CA SCREENING 1965 COLON MONITORING 1965 COLONOSCOPY - COLON CA SCREENING 1965 CT COLONOGRAPHY - COLON CA SCREENING 1965 Colorectal Cancer Screening 1965 FIT - COLON CA SCREENING 1965 FLEX SIG - COLON CA SCREENING 1965 LIPID TESTING 1965 MAMMOGRAM 1965 HIV SCREENING 01/15/1980 DTAP/TDAP/TD VACCINES (1 - Tdap) 01/15/1984 PAP SMEAR 1986 PNEUMOCOCCAL VACCINE 50+ (1 of 1 - PCV) 2015 ZOSTER VACCINE (1 of 2) 2015 DEPRESSION SCREENING 11/08/2024 COVID-19 VACCINE (1 - 2024-2 6 season) 2025 INFLUENZA VACCINE (#1) 2025 Respiratory Syncytial Virus (RSV) Vaccine Pt: or over 60 yrs (1 - 1-dose 75+ series) 01/15/2040 HEPATITIS C SCREENING Completed 02/25/2016 HEPATITIS B VACCINE Aged Out No longe r eligible based on patient's age to complete this topic HIB VACCINE Aged Out No longer eligi ble based on patient's age to complete this topic HPV VACCINE Aged Out No longer eligi ble based on patient's age to complete this topic MENINGOCOCCAL (Group B) VACC INE SHARED DECISION-MAKING Aged Out No longer eligibl e based on patient's age to complete this topic MENINGOCOCCAL GROUPS A/C/Y/W VACCINE Aged Out No longer eligible b ased on patient's age to complete this topic Procedures Procedure Name Priority Date/Time Associated Diagnosis Comments HEPATITIS SCREEN ACUTE Routine 02/25/2016 12:14 PM CDT Pain in joint, multiple sites from Last 3 Months or Most Recently Relevant to Health Maintenance Results * HEPATITIS SCREEN ACUTE (02/25/2016 12:14 PM CDT) Hepatitis A Virus Antibody IgM Non Reactive Non Reactive [facility] ACCOUNT BILL Hepatitis B Virus Surface Antigen Non Reactive Non Reactive [facility] ACCOUNT BILL Hepatitis B Core Virus Antibody IgM Non Reactive Non Reactive [facility] ACCOUNT BILL Hepatitis C Antibody Non Reactive Non Reactive [facility] ACCOUNT BILL Comment: Non Reactive - Antibodies to Hepatitis C virus (HCV) were no t detected, result does not exclude early acute HCV infection. Non Reactive - Antibodies to Hepatitis C virus (HCV) were no t detected, result does not exclude early acute HCV infection. Blood specimen (specimen) BLOOD SPECIMEN / Unknown 02/25/2016 12:14 PM CDT 02/25/2016 4:10 PM CDT Narrative Resulting Agency Comment [facility] [address] [phone] us Kimberli Cheek MD LAB - CHEMISTRY ORDERABLES Final Result [facility] ACCOUNT BILL [address] [place] [address] from Last 3 Months or Most Recently Relevant to Health Maintenance Care Teams Lining Machine Tender Relationship Specialty Start Date End Date Alfonzo Lawson MD [address] [place] [id number] PCP - General Family Medicine 02/25/16 [place] [address] [id number] Community Engagement Manager Rheumatology 02/25/16
[2025-10-24 19:43] LABS: Hematocrit 43.1 % (37.0-47.0); Hemoglobin 14.3 g/dL (12.0-15.0); Immature Granulocyte Percent A 0.3 % (0-0.5); Lymphocytes Absolute Auto 3.29 K/mm3 (0.9-3.2); Mean Corpuscular HGB Conc 33.2 g/dl (32-36); Mean Corpuscular Hemoglobin 31.6 pg (26-34); Mean Corpuscular Volume 95.1 fl (80-100); Nucleated Red Blood Cells Absolute Auto 0.000 K/mm3 (0.0-0.012); Nucleated Red Blood Cells Perc 0.0 % (0.0-0.2); Platelet Count Result 268 k/mm3 (150-375); Red Blood Count 4.53 M/mm3 (4.2-5.4); White Blood Count 7.3 K/mm3 (4.5-10.0)
[2025-10-24 20:04] LABS: Alanine Aminotransferase 15 U/L (6-35); Albumin Level 4.5 g/dL (3.5-5.1); Alkaline Phosphatase 68 U/L (38-126); Anion Gap 5 mmol/L (4-12); Aspartate Amino Transferase 77 U/L (14-36); Bilirubin,Total 0.7 mg/dL (0.2-1.3); Blood Urea Nitrogen 14 mg/dL (7-17); Calcium 9.4 mg/dL (8.4-10.2); Carbon Dioxide 29 mmol/L (22-30); Chloride 105 mmol/L (98-107); Cholesterol 225 mg/dL (0-200); Estimated Glomerular Filt Rate > 60; Glucose 59 mg/dL (65-110); HDL Direct 76 mg/dL; Potassium 4.6 mmol/L (3.4-5.0); Sodium 139 mmol/L (137-145); Total Protein 7.5 g/dL (6.3-8.2); Triglycerides 56 mg/dL (<150)
[2025-10-24 20:30] LABS: Thyroid Stimulating Hormone 0.794 uIU/mL (0.465-4.680)
== END 2025-10-24 09:45 | disposition home or self-care (01) ==
LOC: ANHGOSHLAB 09:44
PROVIDERS: PCP Family Medicine; Visit Provider Nurse Practitioner Family
DX: I73.00 Raynaud's syndrome without gangrene (principal); M35.9 Systemic involvement of connective tissue, unspecified; G43.109 Migraine with aura, not intractable, without status migrainosus; R53.83 Other fatigue; E55.9 Vitamin D deficiency, unspecified
CPT/HCPCS: 36415; 80053; 80061; 82306; 84443; 85025